=== PATIENT | male | born 1955 | race Caucasian/White ===

== ENCOUNTER → 2019-04-17 | Day surgery (SDC) | payer OTHER, BC ==
[~2019-04-17] VITALS: Ht 175.3 cm; Wt 80.7 kg
[~2019-04-17] MED LIST: ASPIR 8181 MG PO; GLUCOSAMINE1000 MG PO; HYDROCODON-ACE1 EAC7 PO; TART CHERRY CA1 EACH PO; TYLENOL PM EX-1 EACH PO
[2019-04-17 10:09] VITALS: BP 127/81
[2019-04-17 10:57] LABS: HEMOGLOBIN 14.4 gm/dL (14.0-18.0)
[2019-04-17 12:39] VITALS: BP 127/81
--- NOTE | 2019-04-21 07:38 | EKG ---
[address] [place] [address] ELECTROCARDIOGRAM REPORT Name: KERI BIANCHI Room #: REG [facility].#: [id number] Admission: 04/17/19 Attend Phys: Major Saleem MD Discharge: Date of : 51 Report #: [id number] THIS REPORT FOR: //name// [facility] Test Date: 2019-04-17 Test Time: 10:08:35 Pat Name: KERI BIANCHI Department: Room: Gender: M Ophthalmic Asst: samira : 1955 Requested By: Apurva Schneider Order Number: [id number] MD: Vic Villegas Measurements Intervals Mobile Rate: 70 P: 60 MT: 166 QRS: 76 QRSD: 110 T: 65 QT: 408 QTc: 441 Interpretive Statements Sinus rhythm No significant abnormality Compared to ECG 05/04/1999 20:47:00 No significant change was found Electronically Signed On 04-21-2019 7:38:33 CDT by Vic Villegas [email or web address] <ELECTRONICALLY SIGNED> By: Vic Villegas MD, [facility] 04/21/19 0738 1008 1008 Vic Villegas MD, FACC /EPI
--- NOTE | 2019-04-23 12:49 | O ---
[facility] [place] [address] OPERATIVE REPORT Name: KERI BIANCHI Room #: REG [facility].#: [id number] Admission: 04/17/19 Attend Phys: Major Saleem MD Discharge: Date of : 51 Report #: [id number] THIS REPORT FOR: //name// CC: Major Norris DATE OF SERVICE: 04/17/2019 PREOPERATIVE DIAGNOSIS: Symptomatic umbilical hernia. POSTOPERATIVE DIAGNOSIS: Symptomatic umbilical hernia. PROCEDURE PERFORMED: Repair of umbilical hernia with small Ventralex patch placed in the properitoneal space. SURGEON: Major Saleem MD ANESTHESIA: General anesthesia. COMPLICATIONS: None. ESTIMATED BLOOD LOSS: 5 mL. PROCEDURE NOTE: With the patient under general anesthesia, abdomen was prepped and draped in sterile fashion. IV antibiotic was administered. Timeout was performed. A 0.25% Marcaine was used to anesthetize the skin infraumbilically. The skin incision was made. Cautery was used for hemostasis. The skin was then lifted off of the hernia sac. The hernia sac was freed from the subcutaneous tissue. Hernia sac was then freed from the fascia edges. The hernia sac was reduced. The fascia defect is about a 1.5 cm oval shape. The edges were cleaned off. The edges were grasped with hemostat. The properitoneal space was then dissected free using cautery and blunt dissection. The fascia was fairly good quality. The properitoneal space was opened up without difficulty. A small Ventralex patch was then placed in the space. The patch opened up well. The fascia was then closed with horizontal mattress 0 Prolene suture. Two separate sutures were placed. The fascia was closed with the sutures tied together closing the fascial defect. The strap was incorporated with the closure and the Ventralex patch strap was then trimmed at the fascial level. The skin of the umbilicus was pulled down to the fascia level with 4-0 PDS suture. Skin was then closed with 5-0 PDS. Mastisol, Steri-Strips applied, [address] [address] OPERATIVE REPORT Name: KERI BIANCHI Room #: REG [facility] M.R.#: [id number] Admission: 04/17/19 Attend Phys: Major Saleem MD Discharge: Date of : 51 Report #: [id number], OpSite used for dressing. The patient tolerated the procedure well and was taken to recovery room. <ELECTRONICALLY SIGNED> By: Major Saleem MD 04/23/19 1249 2118 2131 Major Saleem MD /nt
== END | disposition home or self-care (01) ==
LOC: OR 09:05
PROVIDERS: Surgery
DX: K42.9 Umbilical hernia without obstruction or gangrene (principal); M19.90 Unspecified osteoarthritis, unspecified site; F17.210 Nicotine dependence, cigarettes, uncomplicated; Z87.442 Personal history of urinary calculi; Z98.890 Other specified postprocedural states; Z79.899 Other long term (current) drug therapy; Z79.82 Long term (current) use of aspirin
CPT/HCPCS: 50010; 50101; 50119; 50386; 50403; 56524; 56525; 62110; 62900; 70005

== ENCOUNTER → 2020-04-19 | Outpatient (CLI) | payer OTHER, BC ==
[~2020-04-19] MED LIST changes: +GLUCOSAMINE &1 EACH PO; +ROSUVASTATIN CA10 MG PO; +SULFAZINE500 MG PO; +TURMERIC500 M2 PO
== END ==
LOC: SJCVCIMAG 10:11 → SJCVC 10:11
PROVIDERS: ATTEND Internal Medicine
DX: R07.9 Chest pain, unspecified (principal); E78.5 Hyperlipidemia, unspecified; F17.200 Nicotine dependence, unspecified, uncomplicated; Z79.899 Other long term (current) drug therapy

== ENCOUNTER → 2020-04-27 | Outpatient (CLI) | payer OTHER, BC ==
[~2020-04-27] VITALS: Ht 170.2 cm; Wt 80.9 kg
[2020-04-27 10:46] VITALS: BP 127/80
--- NOTE | 2020-04-27 16:17 | EKG ---
[facility] [place] [address] ELECTROCARDIOGRAM REPORT Name: KERI BIANCHI Room #: REG CLI ..#: [id number] Admission: 04/27/20 Attend Phys: Daryl Pardo Discharge: Date of : 51 Report #: [id number] THIS REPORT FOR: cc: Alfred Cameron Steven F. DO Lammoglia,Daryl Arciniega MD ~ THIS REPORT FOR: //name// [facility] Test Date: 2020-04-27 Test Time: 11:12:02 Pat Name: KERI BIANCHI Department: Room: Gender: [place]: KURT : 1955 Requested By: Daryl Pardo Order Number: [id number] MD: Daryl Pardo Measurements Intervals [place] Rate: 62 P: 73 AK: 178 QRS: 80 QRSD: 103 T: 70 QT: 430 QTc: 437 Interpretive Statements Sinus rhythm Poor R wave progression Minimal ST elevation consider early repolarization Compared to ECG 04/17/2019 10:08:35 No significant changes Electronically Signed On 04-27-2020 16:17:24 CDT by Daryl Pardo [email or web address] <ELECTRONICALLY SIGNED> By: Daryl Pardo MD 04/27/20 1617 1112 1112 Daryl Pardo MD /EPI
--- NOTE | 2020-05-04 16:16 | CATHLAB ---
[facility] [place] [address] INVASIVE PROCEDURE REPORT Name: KERI BIANCHI Room #: REG [facility] Amara#: [id number] Admission: 04/27/20 Attend Phys: Daryl Pardo Discharge: Date of : 51 Report #: [id number] THIS REPORT FOR: cc: Alfred Cameron Steven F. DO Lammoglia, Francisco J. MD ~ APPROVED REPORT Study performed: 04/27/2020 10:54:42 Patient Details Patient Status: Out-Patient Room #: The patient is a 65 year-old male Event Personnel Daryl Pardo Claims Adjuster Supervisor, Aurea العراقي RN RN, Miguel López RTR Scrub, Concetta Pena RTR, BOILER TUBE REAMER Monitor Procedures Performed Art Access - R femoral artery* Left Heart Cath w/or w/o Coronaries [id number] [facility] [id number] Initial Mod Sed Same Phys/QHP [facility] [id number] 73012 Mod Sed Same Phys/QHP [id number] Hemostasis with Manual pressure, supervision of conscious sedation Indication Chest pain Procedure Narrative The Right Groin^ was infiltrated with 1% Lidocaine subcutaneous anesthesia. A PINNACLE 4FR Sheath #[id number] sheath was inserted into the RFA^. Coronary angiography was performed using coronary diagnostic catheters. The right coronary system was accessed and visualized with a JR4 catheter. The left coronary system was accessed and visualized with a JL4 catheter. The left ventricle was accessed and visualized with a JR4 catheter. Left ventricular/Aortic Valve gradient assessed via catheter pullback. Hemostasis was obtained with manual pressure following sheath removal without any complications. The patient tolerated the procedure well and there were no complications associated with the procedure. There was no hematoma. Intraoperative Conscious Sedation Sedation start time: 12:26 Case end Time: [facility] [address] [place] [address] INVASIVE PROCEDURE REPORT Name: KERI BIANCHI Room #: REG [facility] [id number] Admission: 04/27/20 Attend Phys: Daryl Duran Discharge: Date of : 51 Report #: [id number] 12:57 Versed 2 mg Fluoro Time: 4.40 minutes Dose: DAP 6646.00 cGycm2 1062 mGy Contrast Type and Amount: Omnipaque 50 ml Coronary Angiography The patient's coronary anatomy is right dominant. Diagnostic Cath Left Main The main is normal origin caliber bifurcates at the descending left circumflex. Free of high-grade disease. LAD LAD is a moderate caliber type III vessel which in its distal third tapers to a string-like vessel prior to hooking the apex and terminates a bifurcating vessel. Proximal portion there is mild irregularities and at the origin of the first diagonal branch there is an eccentric 30% plaque in the diagonal vessel itself of the LAD continues in the interventricular sulcus giving rise to several diagonal branches and a very tortuous pattern towards the apex Diagonal 1 Small to moderate caliber vessel with eccentric plaque of approximately 30% otherwise free of high-grade disease it courses on the anterolateral wall Circumflex Small nondominant vessel giving rise to marginal branches and terminates a small lateral wall branch. These are all free of high-grade disease OM1 Originates after the circumflex proper is proceeded in the AV groove and in the lateral aspect of the ventricle. He has a mild proximal irregularities and is small in caliber with no high-grade lesion OM2 Small vessels origin is immediately after the origin of the first marginal branch again forcing on the anterolateral wall free of high-grade disease Right Coronary Large-caliber dominant vessel normal origin proceeds giving rise to his right ventricular right atrial branches. It courses of the crux of the heart rate is as close ascending artery present terminates with posterior lateral branch which is quite long reaching towards the apex R PDA Moderate caliber vessel without high-grade lesion but tortuous in its course Left Ventriculography Left Ventriculography was not performed. [facility] [address] [place] [address] INVASIVE PROCEDURE REPORT Name: KERI BIANCHI Room #: REG [facility].#: [id number] Admission: 04/27/20 Attend Phys: Daryl Duran Discharge: Date of : 51 Report #: [id number] Hemodynamics The aortic pressure is 137/79 mmHg with a mean of 103 mmHg. The left ventricular pressure is 137/9 mmHg with a mean of mmHg. The left ventricular end diastolic pressure is 22 mmHg. Conclusion 1. Mild coronary disease involving mild plaquing less than 50% in the diagonal branch of the LAD. 2. Tortuous vessels suspicious for hypertensive heart disease 3. Abnormal hemodynamics with mildly elevated left ventricular diastolic pressure Recommendations Cardiac Risk Reduction Program Medical Therapy <ELECTRONICALLY SIGNED> By: Daryl Pardo MD 05/04/20 1616 1616 1616 Daryl Pardo MD /INF
== END | disposition home or self-care (01) ==
LOC: CATH 09:28
PROVIDERS: ATTEND Internal Medicine
DX: R07.9 Chest pain, unspecified (principal); I25.10 Atherosclerotic heart disease of native coronary artery without angina pectoris; I50.30 Unspecified diastolic (congestive) heart failure; E78.5 Hyperlipidemia, unspecified; M19.90 Unspecified osteoarthritis, unspecified site; F17.210 Nicotine dependence, cigarettes, uncomplicated; Z98.890 Other specified postprocedural states; Z79.899 Other long term (current) drug therapy; Z82.49 Family history of ischemic heart disease and other diseases of the circulatory system; Z87.442 Personal history of urinary calculi

== ENCOUNTER → 2020-05-18 | Outpatient (CLI) | payer OTHER, BC | LOC: SJCVC 13:32 | PROVIDERS: ATTEND Internal Medicine | DX: I25.10 Atherosclerotic heart disease of native coronary artery without angina pectoris (principal); E78.5 Hyperlipidemia, unspecified; F17.210 Nicotine dependence, cigarettes, uncomplicated; Z79.899 Other long term (current) drug therapy ==